=== PATIENT | female | born 1930 | race Caucasian/White ===

== ENCOUNTER → 2017-02-25 | Outpatient (CLI) | payer BC ==
[~2017-02-25] MED LIST: ASPI81TA28 PO; BIOTCAP2 PO; BRIM0.2S OPL; CLBCRM30 EXT; COEN150C PO; FINA5TAB PO; LORA-741 PO; MIRT30TA3 PO; MULT-506 PO; MULTCAP33 PO; PRAV20TA PO; SNM/25100 PO; TRIA1SPR4 NAE
[2017-02-25 11:43] LABS: ALT/SGPT 15 U/L (12-78); BLOOD UREA NITROGEN 37 mg/dl (7-18); BUN/CREATININE RATIO 30.8 (10-20); CARBON DIOXIDE 27 mmol/L (21-32); CHLORIDE 106 mmol/L (98-107); CHOLESTEROL 198 mg/dl (0-200); GLUCOSE 214 mg/dl (70-99); POTASSIUM 4.4 mmol/L (3.5-5.1); SODIUM 140 mmol/L (136-145)
[2017-02-25 11:46] LABS: ALB/GLOB RATIO 0.9 (0.9-2); ALKALINE PHOSPHATASE 79 U/L (45-117); AST/SGOT 19 U/L (15-37); CHOLESTEROL/HDL RATIO 2.6; HDL CHOLESTEROL 76 mg/dl; LDL CHOLESTEROL CALCULATED 111 mg/dl; TRIGLYCERIDES 54 mg/dl (0-150); VERY LOW DENSITY LIPOPROT CALC 11 mg/dl
[2017-02-25 11:47] LABS: CALCIUM 9.5 mg/dl (8.5-10.1)
== END | disposition home or self-care (01) ==
LOC: C.LABFOXMH 09:33
PROVIDERS: ATTEND Internal Medicine
DX: E78.00 Pure hypercholesterolemia, unspecified (principal); I10 Essential (primary) hypertension

== ENCOUNTER → 2017-06-30 | Outpatient (CLI) | payer BC ==
[2017-06-30 08:42] LABS: BLOOD UREA NITROGEN 17 mg/dl (7-18); BUN/CREATININE RATIO 18.8 (10-20); CALCIUM 9.5 mg/dl (8.5-10.1); CARBON DIOXIDE 29 mmol/L (21-32); CHLORIDE 106 mmol/L (98-107); GLUCOSE 93 mg/dl (70-99); POTASSIUM 4.4 mmol/L (3.5-5.1); SODIUM 141 mmol/L (136-145)
[2017-06-30 08:59] LABS: ESTIMATED AVERAGE GLUCOSE 120 mg/dl; HA1C FLAG Normal (Normal)
== END | disposition home or self-care (01) ==
LOC: C.LABFOXMH 08:18
PROVIDERS: ATTEND Internal Medicine
DX: R78.89 Finding of other specified substances, not normally found in blood (principal)

== ENCOUNTER → 2017-08-19 | Outpatient (CLI) | payer BC ==
--- NOTE | 2017-08-19 12:59 | DIAGNOSTIC IMAGING REPORT ---
L SHOULDER MIN 2 VIEWS ROUTINE HISTORY: 86 years-old Female LT ARM AND SHOULDER PAIN/FALL acute left shoulder pain status post fall COMPARISON: Chest radiographs 08/15/2014 TECHNIQUE: 3 views of the left shoulder FINDINGS: Bones are moderately demineralized. There are moderate AC joint and glenohumeral degenerative changes. There is no acute fracture, dislocation or loose body identified. Imaged clavicle appears intact. Imaged soft tissues are unremarkable. IMPRESSION: 1. Degenerative changes as above without acute fracture or dislocation. 2. Moderately demineralized bones. The above report was generated using voice recognition software. It may contain grammatical, syntax or spelling errors. Electronically signed by: Karl Garcia M.D. 08/19/2017 12:57 PM Dictated Date/Time: 08/19/2017 12:56 PM
== END | disposition home or self-care (01) ==
LOC: C.RADBC 12:41
PROVIDERS: ATTEND Internal Medicine Hospice and Palliative Medicine
DX: M19.012 Primary osteoarthritis, left shoulder (principal); W19.XXXA Unspecified fall, initial encounter

== ENCOUNTER → 2017-09-17 | Outpatient (CLI) | payer BC ==
[2017-09-17 09:20] LABS: HEMATOCRIT 37.2 % (37-47); MEAN CELL VOLUME 94.4 fL (80-100); MEAN CORPUSCULAR HEMOGLOBIN 31.2 pg (25-34); MEAN CORPUSCULAR HGB CONC 33.1 g/dl (32-36); MEAN PLATELET VOLUME 10.6 fL (7.4-10.4); PLATELET COUNT 219 K/uL (130-400); RED BLOOD COUNT 3.94 M/uL (4.2-5.4); WHITE BLOOD COUNT 8.09 K/uL (4.8-10.8)
[2017-09-17 09:31] LABS: ALT/SGPT 17 U/L (12-78); BLOOD UREA NITROGEN 13 mg/dl (7-18); BUN/CREATININE RATIO 17.1 (10-20); CALCIUM 8.7 mg/dl (8.5-10.1); CARBON DIOXIDE 30 mmol/L (21-32); CHLORIDE 104 mmol/L (98-107); CREATININE 0.78 mg/dl (0.60-1.20); GLUCOSE 99 mg/dl (70-99); POTASSIUM 4.1 mmol/L (3.5-5.1); SODIUM 139 mmol/L (136-145)
[2017-09-17 09:41] LABS: ALKALINE PHOSPHATASE 91 U/L (45-117); AST/SGOT 24 U/L (15-37)
== END | disposition home or self-care (01) ==
LOC: C.LABFOXMH 08:54
PROVIDERS: ATTEND Internal Medicine
DX: I10 Essential (primary) hypertension (principal); E03.9 Hypothyroidism, unspecified

== ENCOUNTER → 2017-10-07 | Outpatient (CLI) | payer BC ==
[2017-10-07 14:13] LABS: BLOOD UREA NITROGEN 21 mg/dl (7-18); CREATININE 0.94 mg/dl (0.60-1.20)
== END | disposition home or self-care (01) ==
LOC: C.LABBC 09:51
PROVIDERS: ATTEND Psychiatry & Neurology Neurology
DX: Z00.00 Encounter for general adult medical examination without abnormal findings (principal)

== ENCOUNTER → 2017-10-12 | Outpatient (CLI) | payer BC ==
[~2017-10-12] MED LIST changes: +GADAVIST IV PRN
--- NOTE | 2017-10-12 11:01 | DIAGNOSTIC IMAGING REPORT ---
CAROTID ARTERY ULTRASOUND CLINICAL HISTORY: STROKE SYNDROME,VISION CHANGES COMPARISON STUDY: Carotid ultrasound February 28, 2015. TECHNIQUE: Real-time, grayscale, and color Doppler sonography of the carotid and vertebral arteries was performed. Images were viewed in the transverse and longitudinal planes. FINDINGS: There is minimal atherosclerotic plaque. Velocity measurements are listed below. COMMON CAROTID PEAK SYSTOLIC VELOCITY (CM/S): RIGHT 86 LEFT 69 ICA PEAK SYSTOLIC VELOCITY (CM/S): RIGHT 57 LEFT 63 The systolic ratios between the internal to common carotid arteries are normal. Antegrade flow is seen in the vertebral arteries. The external carotid arteries are patent. Blood pressure in the right arm measured 138/65. Blood pressure in the left arm measured 127/54. IMPRESSION: No evidence of a hemodynamically significant stenosis. Electronically signed by: Ayaan Chua M.D. 10/12/2017 11:00 AM Dictated Date/Time: 10/12/2017 10:59 AM
--- NOTE | 2017-10-12 12:27 | DIAGNOSTIC IMAGING REPORT ---
Brain MRI WITH AND WITHOUT CONTRAST HISTORY: I63.9 Stroke syndrome H53.9 Vision changes [id number] TECHNIQUE: Multiplanar multisequence MRI of the brain was performed both before and after the intravenous administration of contrast. COMPARISON STUDY: None. FINDINGS: There is no mass, hematoma, midline shift, or acute infarct. The paranasal sinuses are clear. The mastoid air cells are clear. The ventricles and sulci demonstrate mild age-related involutional changes. Scattered foci of T2 hyperintensity seen within the periventricular and subcortical white matter are nonspecific but suggestive of mild microvascular ischemic changes. The major vascular flow voids at the skull base are well-maintained. No abnormal enhancement. IMPRESSION: No acute intracranial abnormality. Electronically signed by: Ritesh Gomez M.D. 10/12/2017 12:26 PM Dictated Date/Time: 10/12/2017 12:15 PM
== END | disposition home or self-care (01) ==
LOC: C.ULTRBC 10:07
PROVIDERS: ATTEND Psychiatry & Neurology Neurology
DX: Z00.00 Encounter for general adult medical examination without abnormal findings (principal); H53.9 Unspecified visual disturbance; I63.9 Cerebral infarction, unspecified

== ENCOUNTER → 2017-11-01 | Outpatient (CLI) | payer BC ==
[~2017-11-01] MED LIST changes: -GADAVIST IV PRN
[2017-11-01 08:39] LABS: BASO % 0.3 %; BASO ABS # 0.03 K/uL (0-0.2); EOS % 1.1 %; HEMOGLOBIN 12.9 g/dL (12.0-16.0); IG# 0.02 K/uL (0.00-0.02); LYMPH % 35.5 %; MEAN CELL VOLUME 95.6 fL (80-100); MEAN CORPUSCULAR HEMOGLOBIN 31.6 pg (25-34); MEAN CORPUSCULAR HGB CONC 33.1 g/dl (32-36); MEAN PLATELET VOLUME 10.6 fL (7.4-10.4); MONO % 10.1 %; MONO ABS # 0.88 K/uL (0.11-0.59); NEUT % 52.8 %; NEUT ABS # 4.61 K/uL (1.4-6.5); PLATELET COUNT 231 K/uL (130-400); RED CELL DISTRIBUTION WIDTH CV 13.7 % (11.5-14.5); RED CELL DISTRIBUTION WIDTH SD 47.6 fL (36.4-46.3); WHITE BLOOD COUNT 8.74 K/uL (4.8-10.8)
[2017-11-01 08:43] LABS: BLOOD UREA NITROGEN 18 mg/dl (7-18); CREATININE 0.93 mg/dl (0.60-1.20); GLUCOSE 100 mg/dl (70-99); SODIUM 140 mmol/L (136-145)
[2017-11-01 08:44] LABS: CALCIUM 9.2 mg/dl (8.5-10.1); CARBON DIOXIDE 30 mmol/L (21-32); CHOLESTEROL 199 mg/dl (0-200); POTASSIUM 4.8 mmol/L (3.5-5.1)
[2017-11-01 08:47] LABS: LDL CHOLESTEROL CALCULATED 106 mg/dl
== END ==
LOC: C.LABFOXMH 08:11
PROVIDERS: ATTEND Internal Medicine
DX: E78.00 Pure hypercholesterolemia, unspecified (principal); I10 Essential (primary) hypertension

== ENCOUNTER → 2018-05-09 | Outpatient (CLI) | payer BC ==
[2018-05-09 14:53] LABS: BLOOD UREA NITROGEN 16 mg/dl (7-18); CALCIUM 9.4 mg/dl (8.5-10.1); CARBON DIOXIDE 27 mmol/L (21-32); CREATININE 1.31 mg/dl (0.60-1.20); GLUCOSE 98 mg/dl (70-99); POTASSIUM 4.8 mmol/L (3.5-5.1); SODIUM 133 mmol/L (136-145)
== END | disposition home or self-care (01) ==
LOC: C.LABFOXMH 13:41
PROVIDERS: ATTEND Internal Medicine
DX: I10 Essential (primary) hypertension (principal)

== ENCOUNTER → 2018-05-10 | Outpatient (CLI) | payer BC ==
[~2018-05-10] MED LIST changes: +OPTIRAY 320 IV PRN
--- NOTE | 2018-05-10 16:09 | DIAGNOSTIC IMAGING REPORT ---
ABD/PELVIS IV AND ORAL CONT CLINICAL HISTORY: 87 years-old Female presenting with ABD PAIN for 7 days, change in stool habits. TECHNIQUE: Multidetector CT of the abdomen and pelvis was performed after the administration of oral and intravenous contrast. IV contrast: 117 mL of Optiray 320. A dose lowering technique was used consistent with the principles of ALARA (as low as reasonably achievable). COMPARISON: 04/19/2014. CT DOSE (mGy.cm): The estimated cumulative dose is 286.98 mGy.cm. FINDINGS: [employer] topogram: Unremarkable. Lung bases: Minimal basilar opacities, likely atelectasis. Top normal heart size. No pericardial or pleural effusion. Liver: Normal morphology. No liver lesion. Patent hepatic vasculature. Biliary: No intrahepatic or extrahepatic biliary ductal dilatation. Gallbladder contains gallstones. Pancreas: Mild parenchymal atrophy. Spleen: Normal. 9 mm splenic arterial aneurysm noted (series 3 image 92). Adrenal glands: Normal. Kidneys and ureters: Few small cysts. No hydronephrosis. No nephrolithiasis. Bladder: Incompletely evaluated secondary to underdistention. Pelvic organs: Uterus and ovaries normal. Bowel: Normal appendix. No bowel obstruction. Peritoneal cavity: No free fluid or intraperitoneal gas. Lymph nodes: No enlarged lymph nodes in the abdomen or pelvis. Vasculature: Atherosclerosis of the normal caliber abdominal aorta. IVC patent. Dilated left gonadal vein measuring 10 mm in diameter. Pelvic varices also noted. This suggests pelvic congestion physiology. Abdominal wall: Normal. Musculoskeletal: Degenerative changes of the spine. IMPRESSION: 1. No acute intra-abdominal pathology. 2. Findings suggest pelvic congestion physiology. Electronically signed by: Fabian Field M.D. 05/10/2018 4:08 PM Dictated Date/Time: 05/10/2018 4:01 PM
== END | disposition home or self-care (01) ==
LOC: C.CTS 15:07
PROVIDERS: ATTEND Internal Medicine
DX: R10.9 Unspecified abdominal pain (principal); R19.5 Other fecal abnormalities

== ENCOUNTER 2019-09-22 15:08 | Observation (INO) ==
[2019-09-22] MEDS ORDERED: NITROGLYCERIN 2% OINTMENT 30GM TUBE EXT STA (15:19)
--- NOTE | 2019-09-22 15:38 | XRay Report ---
XR chest 1V portable HISTORY: Atypical Chest Pain COMPARISON: Chest 08/15/2014. FINDINGS: Mild emphysema. No focal lung consolidations to suggest pneumonia. No evidence for pulmonar y edema. The heart remains borderline enlarged. No pleural effusions. No pneumothorax. IMPRESSION: No significant change compared to the prior study. No acute process. ACT 112: Negative or not required by law. Electronically signed by: Ritesh Gomez M.D. 09/22/2019 3:36 PM
[2019-09-22 16:13] LABS: Basophils # (auto) 0.01 K/uL (0-0.2); Basophils % (auto) 0.1 %; Eosinophils % (auto) 1.4 %; Hematocrit (blood only) 37.2 % (37-47); Hemoglobin 12.2 g/dL (12.0-16.0); Immature Granulocytes # (auto) 0.01 K/uL (0.00-0.02); Immature Granulocytes % (auto) 0.1 %; Lymphocytes # (auto) 1.88 K/uL (1.2-3.4); Lymphocytes % (auto) 26.7 %; Mean Corpuscular Hemoglobin 31.1 pg (25-34); Mean Corpuscular Hgb Conc 32.8 g/dL (32-36); Mean Corpuscular Volume 94.9 fL (80-100); Mean Platelet Volume 9.7 fL (7.4-10.4); Monocytes # (auto) 0.72 K/uL (0.11-0.59); Monocytes % (auto) 10.2 %; Neutrophils # (auto) 4.31 K/uL (1.4-6.5); Neutrophils % (auto) 61.5 %; Platelet Count 224 K/uL (130-400); RDW Coefficient of Variation 13.4 % (11.5-14.5); RDW Standard Deviation 46.3 fL (36.4-46.3); Red Blood Count 3.92 M/uL (4.2-5.4); White Blood Count 7.03 K/uL (4.8-10.8)
[2019-09-22 16:27] LABS: Alanine Aminotransferase 25 U/L (12-78); Albumin Level 3.4 gm/dl (3.4-5.0); Aspartate Aminotransferase 17 U/L (15-37); BUN Creatinine Ratio 24.6 (10-20); Blood Urea Nitrogen 20 mg/dl (7-18); Calcium 8.5 mg/dl (8.5-10.1); Carbon Dioxide 30 mmol/L (21-32); Chloride 108 mmol/L (98-107); Est GFR (African American) 72.5; Est GFR (Non-African American) 62.5; Glucose 128 mg/dl (70-99); Sodium 139 mmol/L (136-145)
[2019-09-22 16:32] LABS: Alkaline Phosphatase 102 U/L (45-117); Bilirubin,Total 0.5 mg/dl (0.2-1); Globulin 3.5 gm/dl (2.5-4.0); Total Protein 6.9 gm/dl (6.4-8.2); Troponin I < 0.015 ng/ml (0-0.045)
--- NOTE | 2019-09-22 17:00 | Emergency Department Note ---
Entered by Gerald Cowart acting as a scribe for Morales Lopez MD History of Present Illness General Chief complaint: Chest Pain Stated complaint: CHEST PAIN Time Seen by Provider: 09/22/19 15:11 Source: patient Limitations: no limitations History of Present Illness Onset (ago): day(s) 2 Location: chest Pain Consistency: + intermittent Maximum Pain Intensity: 2 Current Pain Intensity: 2 Quality: + aching and + dull Associated symptoms: + denies other symptoms (lightheadedness); no diaphoresis and no shortness of breath The patient is a 89 year old female who presents to the Emergency Room with complaints of intermittent left-sided chest pain starting two days ago. She states today the chest pain started at 1000. She states the pain today radiated down to her left arm. She notes the pain is dull and achy. She states nothing ma kes the pain better or worse. She states her pain is 2/10 right now. She states she was sneezing a lot yesterday. The patient denies having SOB, lightheadedness, and sweating. She states she used to have a heart murmur. She states she usually does not have a high BP. She states he never had CAD but notes her father had it when he was 47 at that time. Home Medications Home Medications Medication Instructions Recorded Confirmed Type cholecalciferol (vitamin D3) 50 2,000 unit PO DAILY cap 07/04/19 09/22/19 History mcg (2,000 unit) capsule coenzyme Q10 100 mg tablet 100 mg PO DAILY tab 07/04/19 09/22/19 History melatonin 3 mg tablet 3 mg PO HS tab 07/04/19 09/22/19 History vit C-vit B-adkvkb-luji ox-lutein 1 cap PO BID cap 07/04/19 09/22/19 History 226 mg-200 unit-5 mg-0.8 mg capsule pravastatin 20 mg tablet 20 mg PO DAILY tab 07/19/19 09/22/19 History temazepam 7.5 mg capsule 7.5 mg PO HS cap 07/19/19 09/22/19 History topiramate 25 mg tablet 25 mg PO Q OTHER DAY tab 07/19/19 09/22/19 History brinzolamide [Azopt] 1 drp OPB TID 09/22/19 09/22/19 History carbidopa-levodopa 2 tab PO HS 09/22/19 09/22/19 History clobetasol 1 applic TOP 3XWK 09/22/19 09/22/19 History latanoprostene bunod [Vyzulta] 1 drp OPR QPM 09/22/19 09/22/19 History netarsudil-latanoprost [Rocklatan] 1 drp OPL QPM 09/22/19 09/22/19 History Allergies Allergy/AdvReac Type Severity Reaction Status Date / Time oxycodone Allergy Unknown , Verified 09/22/19 15:48 tramadol Allergy Unknown , Verified 09/22/19 15:48 atorvastatin [From Lipitor] Allergy Verified 09/22/19 15:48 meperidine AdvReac Intermediate SEVERE Verified 09/22/19 15:48 NAUSEA Past Med/Surg History Medical History High cholesterol (Chronic) Hypertension (Resolved) Migraines Orthostatic hypotension (Resolved) Peripheral neuropathy (Chronic) Syncope and collapse (Resolved) Vision changes (Chronic) Surgical History H/O dilation and curettage due to heavy periods before first Hx of tonsillectomy Family History Family/Other Breast cancer Father Heart disease Social History Communication Ability: Effective marital status: / marital status details: [employer]; they [facility] Current Living Situation: Alone Current Living Situation Comment: [facility] Feels Safe at Home: Yes Smoking Status: Never smoker Hx Alcohol Use: Yes (1/week) Hx Substance Use: No Physical Activity Frequency: Does not Exercise Review of Systems See HPI for pertinent positives & negatives. and A total of 10 systems reviewed and were otherwise negative Physical Exam Vital Signs Vital Signs - 24 hr 09/22/19 15:08 09/22/19 15:20 09/22/19 15:29 Temperature 36.8 C Temperature Source Oral Pulse Rate 71 63 Pulse Rate from SpO2 Sensor 64 Respiratory Rate 20 18 Respiratory Effort / Characteristics Non-Labored Respiratory Depth Normal Respiratory Pattern Regular Blood Pressure 179/77 H 189/75 H Blood Pressure Mean 111 129 Pulse Oximetry 95 97 98 Oxygen Delivery Method Room Air Room Air Sepsis Recent Fever Within 48 Hours No Sepsis New/Unexplained Change in Mental Status No Sepsis Action Taken by Nursing No Action Required 09/22/19 15:30 09/22/19 16:00 09/22/19 16:06 Temperature Temperature Source Pulse Rate 65 60 64 Pulse Rate from SpO2 Sensor 62 61 60 Respiratory Rate 16 18 16 Respiratory Effort / Characteristics Respiratory Depth Respiratory Pattern Blood Pressure 163/78 H 159/70 H 170/67 H Blood Pressure Mean 92 106 106 Pulse Oximetry 100 97 99 Oxygen Delivery Method Sepsis Recent Fever Within 48 Hours Sepsis New/Unexplained Change in Mental Status Sepsis Action Taken by Nursing 09/22/19 16:15 09/22/19 16:17 09/22/19 16:30 Temperature Temperature Source Pulse Rate 65 62 67 Pulse Rate from SpO2 Sensor 66 62 67 Respiratory Rate 16 16 19 Respiratory Effort / Characteristics Respiratory Depth Respiratory Pattern Blood Pressure 136/100 152/72 H 181/75 H Blood Pressure Mean 106 119 90 Pulse Oximetry 98 98 98 Oxygen Delivery Method Sepsis Recent Fever Within 48 Hours Sepsis New/Unexplained Change in Mental Status Sepsis Action Taken by Nursing 09/22/19 16:45 09/22/19 17:00 09/22/19 17:15 Temperature Temperature Source Pulse Rate 66 67 72 Pulse Rate from SpO2 Sensor 67 67 70 Respiratory Rate 17 17 21 Respiratory Effort / Characteristics Respiratory Depth Respiratory Pattern Blood Pressure 158/76 H 172/75 H 167/86 H Blood Pressure Mean 97 113 107 Pulse Oximetry 98 98 98 Oxygen Delivery Method Sepsis Recent Fever Within 48 Hours Sepsis New/Unexplained Change in Mental Status Sepsis Action Taken by Nursing Constitutional: Vital signs reviewed. Eyes: Pupils are equal round reactive to light. Conjunctiva are noninjected. ENT: Pharynx is clear without erythema or exudate. Mucous membranes are moist. Neck supple without meningeal signs. Respiratory: Clear to auscultation bilaterally. Breath sounds are equal bilater ally. Cardiovascular: Regular rate and rhythm. No rubs or gallops. GI: Soft, nondistended and nontender. Bowel sounds are present. Musculoskeletal: No peripheral edema. No lower extremity tenderness. Integumentary: No cyanosis. Neurological: The patient is awake and alert. No focal deficits. Psychiatric: Normal affect. Course Course 151: The patient was evaluated in room B12B, and a complete history and physical examination were performed. 1549: I reevaluated the patient. Her chest discomfort is gone. 1640: I reevaluated the patient. She no longer has chest or arm pain. She states she has a little pain to her left shoulder which is reproducible. She states that pain is different from the pain she came in for. I discussed the test results with the patient . She is agreeable to hospitalization. 1644: [facility] will further manage the care of the patient. Administered Medications Discontinued Medications Nitroglycerin (Nitro-Bid 2%) 0.5 inch EXT NOW STA Stop: 09/22/19 15:20 Last Admin: 09/22/19 16:06 Dose: 0.5 inch Documented by: [id number] Medical Decision Making Differential Diagnosis Differential Diagnosis includes but is not limited to unstable angina, [place], arthritis, pleurisy, and GERD. Medical Records Attestation: I reviewed the patient's medical records. I did perform a limited focused review of portions of the patient's old chart on the electronic medical record. The patient has had no recent pertinent visits to this hospital. Home Medications Current Medication List: was personally reviewed by me Laboratory Data Attestation: I reviewed the patient's lab results. Result diagrams: 09/22/19 15:58 09/22/19 15:58 Lab Results 09/22/19 09/22/19 Range/Units 15:58 15:58 WBC 7.03 (4.8-10.8) K/uL RBC 3.92 L (4.2-5.4) M/uL Hgb 12.2 (12.0-16.0) g/dL Hct 37.2 (37-47) % MCV 94.9 (80-100) fL MCH 31.1 (25-34) pg MCHC 32.8 (32-36) g/dL RDW Std Deviation 46.3 (36.4-46.3) fL RDW Coeff of Sunil 13.4 (11.5-14.5) % Plt Count 224 (130-400) K/uL MPV 9.7 (7.4-10.4) fL Immature Gran % (Auto) 0.1 % Neut % (Auto) 61.5 % Lymph % (Auto) 26.7 % [place] % (Auto) 10.2 % Eos % (Auto) 1.4 % Baso % (Auto) 0.1 % Immature Gran # (Auto) 0.01 (0.00-0.02) K/uL Neut # (Auto) 4.31 (1.4-6.5) K/uL Lymph # (Auto) 1.88 (1.2-3.4) K/uL [place] # (Auto) 0.72 H (0.11-0.59) K/uL Eos # (Auto) 0.10 (0-0.5) K/uL Baso # (Auto) 0.01 (0-0.2) K/uL Sodium 139 (136-145) mmol/L Potassium 4.0 (3.5-5.1) mmol/L Chloride 108 H (98-107) mmol/L Carbon Dioxide 30 (21-32) mmol/L Anion Gap 1.0 L (3-11) BUN 20 H (7-18) mg/dl Creatinine 0.83 (0.6-1.2) mg/dl Est Cr Clr Drug Dosing 39.0 ml/min Est GFR ( Amer) 72.5 Est GFR (Non-Af Amer) 62.5 BUN/Creatinine Ratio 24.6 H (10-20) Glucose 128 H (70-99) mg/dl Calcium 8.5 (8.5-10.1) mg/dl Total Bilirubin 0.5 (0.2-1) mg/dl AST 17 (15-37) U/L ALT 25 (12-78) U/L Alkaline Phosphatase 102 (45-117) U/L Troponin I < 0.015 (0-0.045) ng/ml Total Protein 6.9 (6.4-8.2) gm/dl Albumin 3.4 (3.4-5.0) gm/dl Globulin 3.5 (2.5-4.0) gm/dl Albumin/Globulin Ratio 1.0 (0.9-2) Imaging Data Radiologist's Impression: Radiology results as stated below per my review and the radiologist's interpretation: XR chest 1V portable HISTORY: Atypical Chest Pain COMPARISON: Chest 08/15/2014. FINDINGS: Mild emphysema. No focal lung consolidations to suggest pneumonia. No evidence for pulmonary edema. The heart remains borderline enlarged. No pleural effusions. No pneumothorax. IMPRESSION: No significant change compared to the prior study. No acute process. ACT 112: Negative or not required by law. Electronically signed by: Ritesh Gomez M.D. 09/22/2019 3:36 PM ECG Data Attestation: I personally reviewed and interpreted this ECG as follows: Indication: + chest pain Rate (beats per minute): 65 ECG Intervals/blocks: + Normal QRS ECG ST segments: no ST elevation ECG Findings: + PACs Blood Pressure Blood Pressure Findings: Elevated blood pressure Blood Pressure Disposition: further management by hospitalist MDM Narrative I did evaluate the patient as noted above. The patient is presenting with intermittent chest pain on the left side of her chest rating down her left arm. She stated that started about 2 days ago. Initially she did not have radiation and then today she did and therefore she became concerned and presented to the emergency department. She was given aspirin prior to arrival. The patient was placed on a continuous cardiac cath lab technologist. Cardiac monitoring: Indication: Chest pain Rate and rhythm: Normal sinus rhythm rate in the 70s without dysrhythmia. I did order and personally review the patient's 12-lead EKG as described above. She has normal sinus rhythm without any evidence of acute ischemia. I did order and personally reviewed the images of the patient's chest x-ray as described above. Chest x-ray is unremarkable. I did order and review the patient's blood work as noted in the electronic medical record. Troponin is negative. CBC and electrolytes are unremarkable. I did treat the patient with nitroglycerin paste. On reassessment her chest pain is completely resolved. She still has some pain in her left shoulder but she states it is a different type of pain and it is reproducible on palpation. It was different from the pain she had previously rating down her arm. I did discuss the test results with her and recommended hospitalization for repeat cardiac biomarkers and further evaluation. She was agreeable and I did discuss case with the hospitalist and counter caser. Impression & Plan Acute chest pain Discharge Plan Visit Data Chief Complaint: Chest Pain Stated Complaint: CHEST PAIN ED Provider: Morales Lopez Discharge Problem: Acute chest pain Patient Disposition: Being Evaluated by Hospitalist Forms Stand Alone Forms: My [employer] Prescriptions Prescriptions: No Action temazepam 7.5 mg capsule 7.5 mg PO HS RF: 0 coenzyme Q10 100 mg tablet 100 mg PO DAILY RF: 0 cholecalciferol (vitamin D3) 2,000 unit capsule 2,000 unit PO DAILY RF: 0 melatonin 3 mg tablet 3 mg PO HS RF: 0 PreserVision Lutein 226 mg-200 unit -5 mg-0.8 mg capsule 1 cap PO BID RF: 0 topiramate 25 mg tablet 25 mg PO Q OTHER DAY RF: 0 pravastatin 20 mg tablet 20 mg PO DAILY RF: 0 Azopt 1 % drops,suspension 1 drp OPB TID RF: 0 Vyzulta 0.024 % drops 1 drp OPR QPM RF: 0 Rocklatan 0.02-0.005 % drops 1 drp OPL QPM RF: 0 clobetasol 0.05 % cream 1 applic TOP [id number] RF: 0 carbidopa-levodopa 25-100 mg tablet,disintegrating 2 tab PO HS RF: 0 Referrals Referrals: [facility] Daniel [Primary Care Provider] - The scribe's documentation has been prepared under my direction and personally reviewed by me in its entirety. I confirm that the note above accurately reflects all work, treatment, procedures, and medical decision making performed by me.
--- NOTE | 2019-09-22 17:53 | History & Physical Report ---
Date of Service September 22, 2019 Assessment & Plan (1) Left shoulder pain: 89-year-old female was admitted on 22 September 2019 for left-sided shoulder and chest "pains". Left shoulder pain, atypical chest pain: Patient notes left upper chest "pain" lasting for seconds perhaps three times a day over past two days. Presently resolved. Her pain in her left shoulder and humerus area has not resolved. No known falls or trauma. Denies distal neuro deficits. Denies overt lasting chest pain or any shortness of breath. Suspect much of this is MSK in origin (i.e. known rotator cuff injury), but would benefit from cardiac evaluation. - In ED, afebrile, not tachycardic, is hypertensive, with normal room SpO2. WBC 7, hemoglobin 12. Sodium and potassium okay. Troponin at 1558 was negative. Admit EKG is NSR 65, PACs, and NE 204. pCXR appears non-acute but suggestive of mild emphysema. Has a murmur on exam. - In ED, was treated with Nitropaste. Patient says this did not seem to help. - Will treat her left shoulder pain with a lidocaine patch and as needed baclofen and/or tylenol. Will avoid opioids as she reportedly does not tolerate them well. Will x-ray cervical spine, left shoulder, and left upper arm to evaluate for fracture. - As a precaution, we will trend her troponins and EKG to evaluate for cardiac source of pain. Check BNP and TTE as well. Hyperglycemia: ED random glucose 128. Only hemoglobin A1c on record is 5.8 in Jun 2017. - Will check A1c and non-fasting lipids for this admit. Ongoing medical issues: - Hypertension, hyperlipidemia, first-degree AV block: Continue home statin. 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 Code status: Full code. Diet: Regular. DVT prophy: Lovenox. PT/OT: Deferred. Disbo: Admit to PCU telemetry for observation. (2) Atypical chest pain: (3) Hyperglycemia: (4) Hypertension: (5) Hyperlipidemia: (6) Restlessness: History of Present Illness Primary Care Provider: [facility] 89-year-old female requests evaluation of left shoulder, upper arm pain, and left-sided chest discomfort. - Patient says about two days ago (18Dec) she began experiencing fleeting left upper chest discomfort. Says last for a few seconds at a time and quickly self- resolved. Occurs perhaps 3-4 times per day. No known history of the same. Denies any central chest pain, any difficulty breathing or pleuritic component, known fevers or recent illness, cough, or particular history of the same. - Beginning earlier this morning she noticed some pain around her anterior left shoulder radiating along the back of her arm to around her olecranon. She denies any known trauma, falls, or history of the same. Denies any numbness or tingling throughout the arm. She says that she has a known rotator cuff tear but that she has been told she is not a surgical candidate. She has seen orthopedics for this and last had a local injection around November 2018. 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 Because of her arm pain in conjunction with these chest symptoms, she presented here for further evaluation. - Past medical history includes first-degree AV block, hypertension, irritable bowel syndrome, lichen sclerosis, peripheral neuropathy, rectal prolapse, syncope, dysphonia, restlessness/parkinsonism, bilateral rotator cuff injury/pain - Past surgical history includes breast biopsy, tooth extraction, tonsillectomy - Social history includes never smoked. Rarely drinks wine. Lives at [facility]. Retired surgical ICU nurse. Allergies Allergy/AdvReac Type Severity Reaction Status Date / Time oxycodone Allergy Unknown , Verified 09/22/19 15:48 tramadol Allergy Unknown , Verified 09/22/19 15:48 atorvastatin [From Lipitor] Allergy Unknown Verified 09/22/19 18:06 meperidine AdvReac Intermediate SEVERE Verified 09/22/19 15:48 NAUSEA lactose AdvReac Gastrointestinal Verified 09/22/19 18:06 Upset Home Medications Home Medications Medication Instructions Recorded Confirmed Type cholecalciferol (vitamin D3) 50 2,000 unit PO DAILY cap 07/04/19 09/22/19 History mcg (2,000 unit) capsule coenzyme Q10 100 mg tablet 100 mg PO DAILY tab 07/04/19 09/22/19 History melatonin 3 mg tablet 3 mg PO HS tab 07/04/19 09/22/19 History vit C-vit F-vvszxi-ocwu ox-lutein 1 cap PO BID cap 07/04/19 09/22/19 History 226 mg-200 unit-5 mg-0.8 mg capsule pravastatin 20 mg tablet 20 mg PO DAILY tab 07/19/19 09/22/19 History temazepam 7.5 mg capsule 7.5 mg PO HS cap 07/19/19 09/22/19 History topiramate 25 mg tablet 25 mg PO Q OTHER DAY tab 07/19/19 09/22/19 History brinzolamide [Azopt] 1 drp OPB TID 09/22/19 09/22/19 History carbidopa-levodopa 2 tab PO HS 09/22/19 09/22/19 History clobetasol 1 applic TOP 3XWK 09/22/19 09/22/19 History latanoprostene bunod [Vyzulta] 1 drp OPR QPM 09/22/19 09/22/19 History netarsudil-latanoprost [Rocklatan] 1 drp OPL QPM 09/22/19 09/22/19 History Past Med/Surg History Medical History High cholesterol (Chronic) Hypertension (Resolved) Migraines Orthostatic hypotension (Resolved) Peripheral neuropathy (Chronic) Syncope and collapse (Resolved) Vision changes (Chronic) Surgical History H/O dilation and curettage due to heavy periods before first Hx of tonsillectomy Family History Family/Other Breast cancer Father Heart disease Social History Preferred Language: Honduran Communication Ability: Effective 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 Beliefs That Will Affect Care: None marital status: / marital status details: [employer]; they lived in [facility] Current Living Situation: Alone and Personal Care Facility Current Living Situation Comment: independent living at [facility] Other Information That Helps Us Care for You: No Feels Safe at Home: Yes Safety Concerns: Feels Safe At This Time Smoking Status: Never smoker Do You Dip or Chew Tobacco: No ; Second Hand Exposure: No ; Tobacco Cessation Education Requested by Patient: No Hx Alcohol Use: Yes Hx Substance Use: No Physical Activity Frequency: Does not Exercise Review of Systems Review of Systems: Constitutional: Denies fevers, chills, focal weakness Eyes: Denies any visual loss or diplopia ENT: Denies any ear/nose/throat pain or difficulty speaking or swallowing Respiratory: Denies any dyspnea, cough, hemoptysis Cardiovascular: Positive fleeting chest pain. Denies feeling of edema. Gastrointestinal: Denies any abdominal pain, nausea/vomiting/diarrhea Musculoskeletal: Positive left shoulder and humerus regional pain. Skin: Denies any known acute rashes or lesions Neuro: Denies any headache, acute focal weakness or numbness, or difficulties with speech or swallow. Physical Exam Physical Exam: GENERAL: Awake, alert, well-appearing and pleasantly conversational, in no acute distress. HENT: Normocephalic, atraumatic. Oropharynx unremarkable. EYES: Normal conjunctiva. Sclera non-icteric. NECK: Inspection normal. Supple and full ROM. No nuchal rigidity. CARDIAC: +S1S2 RRR, positive 2/6 murmur. RESPIRATORY: Clear to auscultation. No wheezes or rales. Normal respiratory effort. GI: +BS, soft, non-distended. No tenderness to palpation. No rebound or guarding. EXTREMITIES: No pedal/bustos edema or calf tenderness. - Left shoulder: Positive tenderness to palpation around the AC joint as well as the anterior joint line. Patient can extend and abduct to at least 90 degrees. No tenderness along the scapula. - Left upper arm: Has reproducibility of discomfort around the mid-humerus on full elbow flexion. No focal areas of bony or muscular tenderness to palpation elicited. No rashes or skin lesions seen. NEURO: No gross neuro deficits, including a distal sensation of the left upper extremity. No present resting tremor. Results & Data Vital Signs (Past 12 Hours) Vital Signs Temp Pulse Resp BP Pulse Ox 09/22/19 17:15 72 21 167/86 H 98 09/22/19 17:00 67 17 172/75 H 98 09/22/19 16:45 66 17 158/76 H 98 09/22/19 16:30 67 19 181/75 H 98 09/22/19 16:17 62 16 152/72 H 98 09/22/19 16:15 65 16 136/100 98 09/22/19 16:06 64 16 170/67 H 99 09/22/19 16:00 60 18 159/70 H 97 09/22/19 15:30 65 16 163/78 H 100 09/22/19 15:29 98 09/22/19 15:20 63 18 189/75 H 97 09/22/19 15:08 36.8 C 71 20 179/77 H 95 Laboratory Results 09/22/19 09/22/19 Range/Units 15:58 15:58 WBC 7.03 (4.8-10.8) K/uL RBC 3.92 L (4.2-5.4) M/uL Hgb 12.2 (12.0-16.0) g/dL Hct 37.2 (37-47) % MCV 94.9 (80-100) fL MCH 31.1 (25-34) pg MCHC 32.8 (32-36) g/dL RDW Std Deviation 46.3 (36.4-46.3) fL RDW Coeff of Sunil 13.4 (11.5-14.5) % Plt Count 224 (130-400) K/uL MPV 9.7 (7.4-10.4) fL Immature Gran % (Auto) 0.1 % Neut % (Auto) 61.5 % Lymph % (Auto) 26.7 % [place] % (Auto) 10.2 % Eos % (Auto) 1.4 % Baso % (Auto) 0.1 % Immature Gran # (Auto) 0.01 (0.00-0.02) K/uL Neut # (Auto) 4.31 (1.4-6.5) K/uL Lymph # (Auto) 1.88 (1.2-3.4) K/uL [place] # (Auto) 0.72 H (0.11-0.59) K/uL Eos # (Auto) 0.10 (0-0.5) K/uL Baso # (Auto) 0.01 (0-0.2) K/uL Sodium 139 (136-145) mmol/L Potassium 4.0 (3.5-5.1) mmol/L Chloride 108 H (98-107) mmol/L Carbon Dioxide 30 (21-32) mmol/L Anion Gap 1.0 L (3-11) BUN 20 H (7-18) mg/dl Creatinine 0.83 (0.6-1.2) mg/dl Est Cr Clr Drug Dosing 39.0 ml/min Est GFR ( Amer) 72.5 Est GFR (Non-Af Amer) 62.5 BUN/Creatinine Ratio 24.6 H (10-20) Glucose 128 H (70-99) mg/dl Calcium 8.5 (8.5-10.1) mg/dl Total Bilirubin 0.5 (0.2-1) mg/dl AST 17 (15-37) U/L ALT 25 (12-78) U/L Alkaline Phosphatase 102 (45-117) U/L Troponin I < 0.015 (0-0.045) ng/ml Total Protein 6.9 (6.4-8.2) gm/dl Albumin 3.4 (3.4-5.0) gm/dl Globulin 3.5 (2.5-4.0) gm/dl Albumin/Globulin Ratio 1.0 (0.9-2) Medications Administered Discontinued Medications Nitroglycerin (Nitro-Bid 2%) 0.5 inch EXT NOW STA Stop: 09/22/19 15:20 Last Admin: 09/22/19 16:06 Dose: 0.5 inch Documented by: [id number] Code Status & VTE Plan Code Status Full code VTE Prophylaxis Plan VTE Prophylaxis will be ordered: Yes Supervising Physician Co-Signing Physician Notes Pt seen and examined at the bedside with . I was involved in creating assessment and plan with Dr. Granda and I agree with his H&P. GENERAL: Awake, alert, well-appearing and pleasantly conversational, in no acute distress. HENT: Normocephalic, atraumatic. Oropharynx unremarkable. EYES: Normal conjunctiva. Sclera non-icteric. NECK: Inspection normal. Supple and full ROM. No nuchal rigidity. CARDIAC: +S1S2 RRR, positive 2/6 murmur. RESPIRATORY: Clear to auscultation. No wheezes or rales. Normal respiratory effort. GI: +BS, soft, non-distended. No tenderness to palpation. No rebound or guarding. EXTREMITIES: No pedal/bustos edema or calf tenderness. - Left shoulder: Positive tenderness to palpation around the AC joint as well as the anterior joint line. Patient can extend and abduct to at least 90 degrees. No tenderness along the scapula. - Left upper arm: Has reproducibility of discomfort around the mid-humerus on full elbow flexion. No focal areas of bony or muscular tenderness to palpation elicited. No rashes or skin lesions seen. NEURO: No gross neuro deficits, including a distal sensation of the left upper extremity. No present resting tremor. Resident Activity Tracking Resident Involvement: Resident Care Provided Care Provided: Adult Hospital Medicine
[2019-09-22] MEDS ORDERED: BACLOFEN 10 MG TAB PO PRN (19:58)
[2019-09-22] MEDS ORDERED: LIDOCAINE 5% 1 PATCH TD SCH (19:58)
[2019-09-22] MEDS ORDERED: ACETAMINOPHEN 325 MG TAB PO PRN (19:58)
[2019-09-22] MEDS ORDERED: TEMAZEPAM 7.5 MG CAPSULE PO SCH (21:00)
[2019-09-22] MEDS ORDERED: CARBIDOPA/LEVODOPA 25/100MG TAB PO SCH (21:00)
[2019-09-22] MEDS ORDERED: ENOXAPARIN INJ 30 MG/0.3 ML SYR SQ SCH (21:00)
[2019-09-22] MEDS ORDERED: VIT C VIT E COPPER ZINC LUTEIN PO SCH (21:00)
[2019-09-22] MEDS: BRINZOLAMIDE (AZOPT) OPS 10 ML BTL OPB SCH (21:15)
--- NOTE | 2019-09-22 21:25 | XRay Report ---
XR shoulder LT min 2V routine, XR humerus LT 2V HISTORY: 89 years-old Female shoulder arm pain, eval for arth. vs fracture acute left shoulder and left upper extremity pain COMPARISON: Chest radiograph of same day TECHNIQUE: 2 views of the left shoulder and 2 views of the left humerus FINDINGS: SHOULDER: Mild/moderate glenohumeral with mild AC joint osteoarthritis. Demineralized appearance of the bones. No dislocation. Ill-defined linear lucency projects over the superior aspect of the greater tuberosit y. Mild adjacent soft tissue swelling. HUMERUS: Mid and distal humerus appears intact. IMPRESSION: Findings are suspicious for a subtle acute nondisplaced fracture involving the superior a spect of the greater tuberosity. ACT 112: Negative or not required by law. The above report was generated using voice recognition software. It may contain grammatical, syntax o r spelling errors. Electronically signed by: aKrl Garcia M.D. 09/22/2019 9:24 PM
--- NOTE | 2019-09-22 21:29 | XRay Report ---
XR cervical spine 2 or 3V HISTORY: 89 years-old Female shoulder arm pain, eval for arth. vs fracture acute left shoulder and neck pain COMPARISON: Left shoulder and humerus radiographs of same day, cervical spine radiographs 01/21/2010. TECHNIQUE: 3 views of the cervical spine FINDINGS: Demineralized appearance the bones. Moderate disc space narrowing at C4-C5 and C5-C6. Grade 1 anterol isthesis C6 on C7, likely degenerative. Severe multilevel facet arthrosis. No acute fracture identifi ed. Lung apices are clear. No prevertebral soft tissue swelling. IMPRESSION: 1. No acute fracture identified. 2. Degenerative changes as above. ACT 112: Negative or not required by law. The above report was generated using voice recognition software. It may contain grammatical, syntax o r spelling errors. Electronically signed by: Karl Garcia M.D. 09/22/2019 9:28 PM
[2019-09-23 03:58] LABS: BUN Creatinine Ratio 23.9 (10-20); Blood Urea Nitrogen 17 mg/dl (7-18); Calcium 8.4 mg/dl (8.5-10.1); Carbon Dioxide 28 mmol/L (21-32); Chloride 111 mmol/L (98-107); Creatinine Clr Calc Pharmacy 48.4 ml/min; Est GFR (Non-African American) 76.8; Glucose 93 mg/dl (70-99); Potassium 3.9 mmol/L (3.5-5.1); Sodium 141 mmol/L (136-145)
[2019-09-23 04:03] LABS: Chol HDL Ratio 2; Cholesterol 167 mg/dl (0-200); HDL Cholesterol 73 mg/dl; LDL Cholesterol Calculated 78 mg/dl; NT Pro B Type Natriuretic Pept 410 pg/ml (0-1800); Triglycerides 80 mg/dl (0-150); Troponin I < 0.015 ng/ml (0-0.045); VLDL Cholesterol 16 mg/dl
[2019-09-23 05:54] LABS: Estimated Average Glucose 123 mg/dl; Hemoglobin A1C 5.9 % (4.5-5.6)
[2019-09-23] MEDS: BRINZOLAMIDE (AZOPT) OPS 10 ML BTL OPB SCH (08:35)
[2019-09-23] MEDS ORDERED: CHOLECALCIFEROL 1,000 UNITS TAB PO SCH (09:00)
[2019-09-23] MEDS ORDERED: NON-FORMULARY MEDICATION (Coenzyme Q10 100 MG) PO SCH (09:00)
[2019-09-23] MEDS ORDERED: PRAVASTATIN SOD 20 MG TAB PO SCH (09:00)
--- NOTE | 2019-09-23 10:43 | Orthopedic Consultation ---
Date of Consultation September 23, 2019 Assessment & Plan (1) Rotator cuff syndrome of left shoulder: 89-year-old female with history of bilateral shoulder rotator cuff pathology in the past with fairly acute onset of left shoulder pain. She is admitted mostly to rule out cardiac etiology which appears to to have occurred. This does not seem to be cardiac in nature. It seems mostly related to rotator cuff. 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 Her symptoms are pretty manageable now. Once the cardiac issues been straightened out I think she can be discharged. Does not need a sling. She can call our office for an appointment for an injection. If she significantly painful right now I think I would recommend a Medrol Dosepak for maybe 5 days and see if this helps resolve things. Any orthopedic questions can be directed at [phone] Present on Admission?: Yes History of Present Illness Reason for Consultation: Left shoulder pain. Attending Physician: Vinny Frost History of Present Illness Patient is 89-year-old lyirc-mtkc-bifeycof female whose had a fairly long history of intermittent on and off shoulder pain. She been followed by my partner Dr. Padilla most recently and had intermittent shots in both shoulders at various times. It initially started in her right shoulder then progressed to her left shoulder. The shots were pretty effective to the point where it was in her bothering her anymore so she did go back after March of last year. Yesterday she developed the acute onset of increasing left shoulder pain and discomfort. She is had no trauma no falls no bruising no swelling. Describes mostly deltoid type pain. Denies any chest pain or shortness of breath or other cardiac symptoms associated with this. No numbness. Allergies Allergy/AdvReac Type Severity Reaction Status Date / Time oxycodone Allergy Unknown , Verified 09/22/19 15:48 tramadol Allergy Unknown , Verified 09/22/19 15:48 atorvastatin [From Lipitor] Allergy Unknown Verified 09/22/19 18:06 meperidine AdvReac Intermediate SEVERE Verified 09/22/19 15:48 NAUSEA lactose AdvReac Gastrointestinal Verified 09/22/19 18:06 Upset Home Medications Home Medications Medication Instructions Recorded Confirmed Type cholecalciferol (vitamin D3) 50 2,000 unit PO DAILY cap 07/04/19 09/22/19 History mcg (2,000 unit) capsule coenzyme Q10 100 mg tablet 100 mg PO DAILY tab 07/04/19 09/22/19 History melatonin 3 mg tablet 3 mg PO HS tab 07/04/19 09/22/19 History vit C-vit T-immbvv-fxcw ox-lutein 1 cap PO BID cap 07/04/19 09/22/19 History 226 mg-200 unit-5 mg-0.8 mg capsule pravastatin 20 mg tablet 20 mg PO DAILY tab 07/19/19 09/22/19 History temazepam 7.5 mg capsule 7.5 mg PO HS cap 07/19/19 09/22/19 History topiramate 25 mg tablet 25 mg PO Q OTHER DAY tab 07/19/19 09/22/19 History brinzolamide [Azopt] 1 drp OPB TID 09/22/19 09/22/19 History carbidopa-levodopa 2 tab PO HS 09/22/19 09/22/19 History clobetasol 1 applic TOP 3XWK 09/22/19 09/22/19 History latanoprostene bunod [Vyzulta] 1 drp OPR QPM 09/22/19 09/22/19 History netarsudil-latanoprost [Rocklatan] 1 drp OPL QPM 09/22/19 09/22/19 History Patient History Medical History High cholesterol (Chronic) Hypertension (Resolved) Migraines Orthostatic hypotension (Resolved) Peripheral neuropathy (Chronic) Syncope and collapse (Resolved) Vision changes (Chronic) Surgical History H/O dilation and curettage due to heavy periods before first Hx of tonsillectomy Family History Family/Other Breast cancer Father Heart disease Social History Preferred Language: Irish Communication Ability: Effective Adult Manager Required: No Beliefs That Will Affect Care: None marital status: / marital status details: [employer]; they lived in [facility] Current Living Situation: Alone and Personal Care Facility Current Living Situation Comment: independent living at [place] Other Information That Helps Us Care for You: No Feels Safe at Home: Yes Safety Concerns: Feels Safe At This Time Smoking Status: Never smoker Do You Dip or Chew Tobacco: No ; Second Hand Exposure: No ; Tobacco Cessation Education Requested by Patient: No Hx Alcohol Use: Yes Hx Substance Use: No Physical Activity Frequency: Does not Exercise Physical Exam Physical Exam: Examination reveals a pleasant elderly female. She sitting up in bed looks quite comfortable. She was talking on the phone when I went into the room this morning. Examination left shoulder reveals no bruising swelling or atrophy. Is a very thin soft tissue envelope. She got fairly full shoulder motion. Pretty minimal pain with shoulder motion and her motor strength is pretty symmetric. Mild pain with impingement testing. There is no clinical instability. She is neurovascular intact. Results & Data Vital Signs (Past 12 Hours) Vital Signs Temp Pulse Pulse Resp BP Pulse Ox 09/23/19 07:54 36.8 C 64 18 146/74 H 95 09/23/19 03:29 36.9 C 95 H 18 115/69 96 09/22/19 23:08 36.6 C 66 16 120/66 93 09/22/19 23:00 73 Diagnostic Findings X-rays of the left shoulder were reviewed as well as the cervical spine. X-rays of the shoulder reveal left fairly normal appearance. There is a questionable obvious lucency around the greater tuberosity. I reviewed her films from our office and that is no different from several years ago. X-rays of the cervical spine reviews diffuse cervical spondylosis. No signs of acute fracture. PG Care Time/CCT Total # of Minutes Spent Total Time Spent with Patient: Total time spent is greater than 50% in coordination of care (as documented) at patient's floor/unit and/or counseling patient:
[2019-09-23] MEDS ORDERED: DICLOFENAC SOD 1% GEL 100 GM TUBE EXT PRN (11:45)
--- NOTE | 2019-09-23 12:10 | Discharge Summary ---
Date of Service September 23, 2019 Admission HPI Per Admitting Provider 89-year-old female requests evaluation of left shoulder, upper arm pain, and left-sided chest discomfort. - Patient says about two days ago (18Dec) she began experiencing fleeting left upper chest discomfort. Says last for a few seconds at a time and quickly self- resolved. Occurs perhaps 3-4 times per day. No known history of the same. Denies any central chest pain, any difficulty breathing or pleuritic component, known fevers or recent illness, cough, or particular history of the same. - Beginning earlier this morning she noticed some pain around her anterior left shoulder radiating along the back of her arm to around her olecranon. She denies any known trauma, falls, or history of the same. Denies any numbness or tingling throughout the arm. She says that she has a known rotator cuff tear but that she has been told she is not a surgical candidate. She has seen orthopedics for this and last had a local injection around November 2018. 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 Because of her arm pain in conjunction with these chest symptoms, she presented here for further evaluation. - Past medical history includes first-degree AV block, hypertension, irritable bowel syndrome, lichen sclerosis, peripheral neuropathy, rectal prolapse, syncope, dysphonia, restlessness/parkinsonism, bilateral rotator cuff injury/pain Principal Diagnosis left shoulder pain 2nd to rotator cuff syndrome Discharge Exam Constitutional + thin; no acute distress and no altered mental status ENMT external ear and nose normal, oropharynx normal Respiratory normal respiratory effort, lungs clear to auscultation Cardiovascular Rate/Rhythm: regular rate and regular rhythm Heart Sounds: normal S1, normal S2 and + murmur (2/6 systolic - LLSB) Vessels: posterior tibial pulses present and dorsalis pedis pulses present; no JVD Extremities: no edema Chest (Breasts) Additional Comments: no reproducible chest wall pain Gastrointestinal (Abdomen) normal bowel sounds, soft, nontender, no hepatosplenomegaly Musculoskeletal left shoulder - tender to palpation over AC joint & subacromial space/bursa; mild tenderness of shoulder with passive abduction, internal rotation. c-spine - crepitus present with passive/active ROM; active ROM (rotation) significantly decreased. Neurologic strength 5/5 all muscles tested of left arm Psychiatric A+Ox3, euthymic affect Discharge Data Allergies Allergy/AdvReac Type Severity Reaction Status Date / Time oxycodone Allergy Unknown , Verified 09/26/19 08:50 tramadol Allergy Unknown , Verified 09/26/19 08:50 atorvastatin [From Lipitor] Allergy Unknown Verified 09/26/19 08:50 meperidine AdvReac Intermediate SEVERE Verified 09/26/19 08:50 NAUSEA lactose AdvReac Gastrointestinal Verified 09/26/19 08:50 Upset Consultations Orthopedic Surgery - Tramaine Carrizales MD Procedures Performed 1. x-rays left shoulder - FINDINGS: SHOULDER: Mild/moderate glenohumeral with mild AC joint osteoarthritis. Demineralized appearance of the bones. No dislocation. Ill-defined linear lucency projects over the superior aspect of the greater tuberosity. Mild adjacent soft tissue swelling. HUMERUS: Mid and distal humerus appears intact. IMPRESSION: Findings are suspicious for a subtle acute nondisplaced fracture involving the superior aspect of the greater tuberosity. 2. cervical spine x-rays - FINDINGS: Demineralized appearance the bones. Moderate disc space narrowing at C4-C5 and C5-C6. Grade 1 anterolisthesis C6 on C7, likely degenerative. Severe multilevel facet arthrosis. No acute fracture identified. Lung apices are clear. No prevertebral soft tissue swelling. IMPRESSION: 1. No acute fracture identified. 2. Degenerative changes as above. 3. echocardiogram - * EF 60-65% * no wall motion abnormalities * mitral valve prolapse * mild-moderate mitral regurgitation Hospital Course (1) Rotator cuff syndrome of left shoulder: Presenting left shoulder/arm symptoms were most c/w rotator cuff syndrome. 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 Dr Tramaine Carrizales from orthopedics saw her in consult and concurred with the above diagnoses. DESPITE THE SUBTLE LUCENCY ON X-RAYS OF THE LEFT HUMERUS A FRACTURE WAS NOT S USPECTED. This lucency was present on prior x-rays according to Dr Carrizales. Further she had no pain over this region. Again fracture was not felt to be present. Advised voltaren gel 4gm QID to left shoulder, avoiding overuse of the shoulder, and follow-up with either Dr Padilla or Dr Carrizales from orthopedics. We also gave an oral steroid course at discharge to help with her acute symptoms. (2) Mitral regurgitation: systolic murmur on physical exam is 2nd to mild-moderate mitral regurgitation in the setting of mitral valve prolapse. she is asymptomatic from such. (3) Chest discomfort: pain was just inferior to the left shoulder in the upper left chest. the pain was likely referred pain from her musculoskeletal issues. troponins were negative, telemetry was normal, and echocardiogram was normal. cardiac causes of her discomfort were felt highly unlikely. Total Time Total Time Spent Total Time Spent (In Minutes): 30 Total Time Includes: Examination of the Patient, Discharge Planning, Medication Reconciliation and Communication With Other Providers (orthopedics) Discharge Plan Discharge Items Patient Disposition: Personal Custodial Reason For Visit: LEFT SHOULDER PAIN, CHEST PAIN Discharge Diagnosis: 1. left shoulder pain - due to rotator cuff syndrome 2. chest pain - no evidence of heart attack 3. left arm pain - likely due to your left shoulder issues 4. arthritis of your cervical spine (neck) Activity: As commented below Activity Comment: avoid excessive use of your left arm/shoulder; otherwise normal activities Non-emergency contact: Primary Care Provider and Surgeon Call non-emergency contact if: you have any medication questions, your symptoms worsen, your pain is not controlled, your pain is worsening and you have a fever Follow-up/Referrals: Trent Daniel [Primary Care Provider] - (see Dr Ariza within 1 week ) Jono Padilla DO [Physician] - (see Dr Padilla within 1-2 weeks ) Diet: Regular Addtl Attending Provider Instructions: You were admitted to [facility] for left shoulder pain, left arm pain, and upper left chest wall pain. All of your blood work for your heart was NORMAL (no evidence of heart attack). Your heart monitoring was normal. X-rays of the left shoulder showed arthritis. X-rays of the neck (cervical spine) also showed arthritis. You were seen by Dr Tramaine Carrizales from orthopedics. You do NOT have any fracture of the shoulder. It appears you have "rotator cuff syndrome" which can be tendonitis of the rotator cuff tendons OR tears of the tendons OR both issues. The left arm pain was likely referred pain from the shoulder. The upper left chest wall pain could be from the shoulder or neck. It is unlikely to be a symptom of your heart. At this time we recommend - 1. prednisone taper - take for 6 days starting today or tomorrow. 2. voltaren gel - 4 grams to left shoulder up to 4 times each day as needed for pain. 3. ice to left shoulder. If ice makes the shoulder feel worse switch to heat. 4. follow-up with Dr Padilla for the left shoulder. Follow-up - see separate section Return to [facility] if - * you develop shortness of breath or chest pain over your breast bone * you have fevers over 100.5 degrees * you develop numbness or tingling of the left arm/hand * you develop weakness of the left arm/hand * any other concerns Pending Studies at Discharge: Yes Studies:: echocardiogram Stand-Alone Forms: My [facility] [employer], Smoking Cessation Skilled Items Patient informed of condition?: Yes DNR: No Discharge Level of Care: Other Communicable Disease: No Discharge Prognosis: Stable Lines: None Urinary Catheter: No Medications and DC Order Prescriptions: New diclofenac sodium [Voltaren] 1 % Gel 4 g EXT QID PRN (Reason: left shoulder pain) Qty: 100 RF: 0 prednisone 10 mg tablet 10 mg PO DIRECTED Qty: 12 RF: 0 Continued temazepam 7.5 mg capsule 7.5 mg PO HS RF: 0 coenzyme Q10 100 mg tablet 100 mg PO DAILY RF: 0 cholecalciferol (vitamin D3) 2,000 unit capsule 2,000 unit PO DAILY RF: 0 melatonin 3 mg tablet 3 mg PO HS RF: 0 vit C-vit R-tqyjkp-neis-lutein 226 mg-200 unit -5 mg-0.8 mg capsule 1 cap PO BID RF: 0 topiramate 25 mg tablet 25 mg PO Q OTHER DAY RF: 0 pravastatin 20 mg tablet 20 mg PO DAILY RF: 0 Azopt 1 % drops,suspension 1 drp OPB TID RF: 0 Vyzulta 0.024 % drops 1 drp OPR QPM RF: 0 Rocklatan 0.02-0.005 % drops 1 drp OPL QPM RF: 0 carbidopa-levodopa 25-100 mg tablet,disintegrating 2 tab PO HS RF: 0 No Action triamcinolone acetonide 0.1 % cream 1 appln TOP .qod Qty: 30 RF: 0 Discharge Orders: Discharge Order (Routine); Ordered 09/23/19 Ordered By: Vinny Frost Admission Data Admit Date/Time: 09/22/19 17:48 Attending Provider: Vinny Frost Admit Provider: Karl Zavala Primary Care Provider: Trent Daniel Other Providers: Bin Arora ; Tramaine Carrizales Other Interventions: Discharge Summary Assessment (RN) Last Done: 09/23/19 13:21 DC Date/Time DO NOT enter until pt leaves facility: 09/23/19 14:15
[2019-09-24] MEDS ORDERED: TOPIRAMATE 25 MG TAB PO SCH (09:00)
[2019-09-25] MEDS ORDERED: CLOBETASOL PROPIONATE 0.05% OINT 15 GM TUBE EXT SCH (09:00)
== END 2019-09-23 14:15 | disposition home or self-care (01) ==
LOC: ED 15:08 → 2S 15:08 → SUATTDRO 17:48 → 2S 19:14